=== PATIENT | female | born 1970 | race Caucasian/White ===

== ENCOUNTER 2022-09-24 15:37 | Outpatient (CLI) | payer BC | END 2022-09-24 15:38 | disposition home or self-care (01) | LOC: CSHRAD 15:37 | PROVIDERS: ATTEND Internal Medicine Rheumatology | DX: M54.50 Low back pain, unspecified (principal); M54.16 Radiculopathy, lumbar region | CPT/HCPCS: 72100 ==

== ENCOUNTER 2024-05-15 15:39 | Outpatient (CLI) | payer BC | END 2024-05-15 15:40 | disposition home or self-care (01) | LOC: CSHRAD 15:39 | PROVIDERS: ATTEND Psychiatry & Neurology Neurology | DX: M48.061 Spinal stenosis, lumbar region without neurogenic claudication (principal); M47.816 Spondylosis without myelopathy or radiculopathy, lumbar region; M25.48 Effusion, other site | CPT/HCPCS: 72148 ==